=== PATIENT | male | born 1940 | race Caucasian/White ===

== ENCOUNTER 2019-04-01 19:13 | Inpatient (IN) | payer OTHER ==
[~2019-04-01] VITALS: Ht 177.8 cm; Wt 79.4 kg
--- NOTE | ~2019-04-01 | EKG ---
[facility] [place] [address] ELECTROCARDIOGRAM REPORT Name: MURALI ALMAGUER Room #: [facility] M.R.#: [id number] Admission: Attend Phys: Discharge: Date of : 40 Report #: [id number] THIS REPORT FOR: //name// [facility] ED Test Date: 2019-04-01 Test Time: 19:45:22 Pat Name: MURALI ALMAGUER Department: Room: Gender: Copy Lathe Tender: FREYA : 1940 Requested By: Kenneth Holcomb Order Number: [id number] MD: Measurements Intervals [place] Rate: 160 P: FL: QRS: -41 QRSD: 88 T: 106 QT: 286 QTc: 467 Interpretive Statements Atrial fibrillation with rapid V-rate Left anterior fascicular block Abnormal R-wave progression, early transition LVH with secondary repolarization abnormality No previous ECG available for comparison [email or web address] By: 44 44 Damon Jose MD /ANALI
[2019-04-01 19:23] VITALS: BP 136/76
[2019-04-01] MEDS ORDERED: ACYCLOVIR 400400 MG PO (19:50)
[2019-04-01 20:35] LABS: HEMATOCRIT 44.6 % (42.0-52.0); HEMOGLOBIN 14.9 gm/dL (14.0-18.0); MCHC 33.4 g/dL (28.0-37.0); MCV 95.9 fL (80.0-100.0); PLATELET COUNT 237 thou/uL (150-400); RBC 4.65 mil/uL (4.50-6.00); RDW 13.7 % (10.5-14.5); WBC 8.7 thou/uL (4.0-11.0)
[2019-04-01 20:45] LABS: CALCIUM 9.4 mg/dL (8.5-10.1); CREATININE 1.1 mg/dL (0.7-1.3); POTASSIUM 4.2 mmol/L (3.5-5.1)
[2019-04-01 20:48] LABS: APTT 28.7 Seconds (24.5-32.8); PROTIME 9.9 Seconds (9.3-11.4)
[2019-04-01 20:55] LABS: ABSOLUTE NEUTROPHILS 5.7 thou/uL (1.4-8.2); ALBUMIN 3.6 g/dL (3.4-5.0); ATYPICAL LYMPHS 4 %; MAGNESIUM 2.2 mg/dL (1.8-2.4); PLATELET ESTIMATE NORMAL; TOTAL BILIRUBIN 0.3 mg/dL (<0.1-1.0); TOTAL PROTEIN 7.5 g/dL (6.4-8.2)
[2019-04-01 20:59] LABS: TROPONIN-I 14.66 ng/mL (<0.06)
[2019-04-01 22:02] VITALS: BP 103/76
[2019-04-01 22:45] VITALS: BP 139/84
[2019-04-02] VITALS (12 sets, daily range): BP systolic 114–137; BP diastolic 75–92
[2019-04-02 00:49] LABS: CHOLESTEROL 155 mg/dL (<200); HDL CHOLESTEROL 72 mg/dL (>40); LDL CHOLESTEROL 69 mg/dL (<100); TC:HDL 2.2 Ratio (Not establshd); TRIGLYCERIDE 70 mg/dL (<150); VLDL 14 mg/dL (<40)
[2019-04-02 00:52] LABS: SERUM ASSESSMENT Clear
[2019-04-02 03:01] LABS: ALBUMIN 3.1 g/dL (3.4-5.0); CALCIUM 8.4 mg/dL (8.5-10.1); POTASSIUM 4.1 mmol/L (3.5-5.1); TOTAL BILIRUBIN 0.5 mg/dL (<0.1-1.0); TOTAL PROTEIN 6.6 g/dL (6.4-8.2)
[2019-04-02 03:04] LABS: TROPONIN-I 11.68 ng/mL (<0.06)
--- NOTE | 2019-04-02 04:25 | NUR ---
PT NEW ADMIT. AO X4. VSS. DENIES CHEST PAIN. ADMISSION ASSESSMENT COMPLETE. PT ORIENTED TO ROOM AND CALL LIGHT SYSTEM. ON HEPARIN AND CARDIZEM DRIP. DENIES ANY ACTIVE SOB OR PAIN. AD NAVJOT WITH AMBULATION. NPO SINCE MIDNIGHT. A RUN OF 22 BEATS OF VTACH, BUT ASYMPTOMATIC. SPOUSE AT BEDSIDE. ELEVATED TROPONIN. WILL CONTINUE TO FOLLOW POC.
--- NOTE | 2019-04-02 12:58 | 2DMMODE ---
[facility] [address] [place] [address] 2 D/M-MODE ECHOCARDIOGRAM Name: MURALI VARELA Room #: 217-P ADM IN M.R.#: [id number] Admission: 04/01/19 Attend Phys: George Gordillo Discharge: Date of : 40 Report #: [id number] THIS REPORT FOR: //name// APPROVED REPORT Study performed: 04/02/2019 10:25:13 EXAM: Comprehensive 2D, Doppler, and color-flow Echocardiogram Patient Location: Bedside Room #: Formerly named [facility] Status: routine BSA: 2.03 HR: 68 bpm BP: 124/87 mmHg Rhythm: RBBB, Afib Other Information Study Quality: Adequate Indications Dyspnea CAD NSTEMI 2D Dimensions IVSd: 11.63 (7-11mm) LVOT Diam: 21.00 (18-24mm) LVDd: 54.56 mm PWd: 12.89 (7-11mm) Ascending Ao: 37.56 (22-36mm) LVDs: 42.48 (25-40mm) Aortic Root: 36.27 mm LV Single Plane 4CH: 41.99 % LV Single Plane 2CH: 40.00 % Biplane EF: 42.0 % Volumes Left Atrial Volume (Systole) Single Plane 4CH: 55.85 mL Single Plane 2CH: 58.61 mL LA ESV Index: 32.00 mL/m2 Aortic Valve AoV Peak Luis.: 1.03 m/s AO Peak Gr.: 4.75 mmHg LVOT Max P.83 mmHg LVOT Max V: 0.68 m/s SHARYN Vmax: 2.18 cm2 [facility] [address] [place] [address] 2 D/M-MODE ECHOCARDIOGRAM Name: MURALI VARELA Room #: 217-P [facility] IN [facility]#: [id number] Admission: 04/01/19 Attend Phys: George Gordillo Discharge: Date of : 40 Report #: [id number] Pulmonary Valve PV Peak Luis.: 0.63 m/s PV Peak Gr.: 1.58 mmHg Tricuspid Valve TR Peak Luis.: 3.39 m/s RAP Estimate: 10.00 mmHg TR Peak Gr.: 45.92 mmHg PA Pressure: 56.00 mmHg Left Ventricle Left ventricle is dilated. Anteroseptal hypokinesis. Mild concentric left ventricular hypertrophy. Left ventricular systolic function is moderately decreased. LVEF is 40%. This study is not technically sufficient to allow evaluation of the LV diastolic function due to atrial fibrillation. Right Ventricle The right ventricle is normal size. The right ventricular systolic function is normal. Atria The left atrium size is normal. Right atrium is mildly dilated. Aortic Valve The aortic valve is normal in structure. No aortic regurgitation is present. There is no aortic valvular stenosis. Mitral Valve The mitral valve is normal in structure. Mild to moderate mitral regurgitation. No evidence of mitral valve stenosis. Tricuspid Valve The tricuspid valve is normal in structure. Mild to moderate tricuspid regurgitation. Pulmonary artery pressure is 56 mmHg. Moderate pulmonary hypertension. Pulmonic Valve The pulmonary valve is normal in structure. Trace pulmonic regurgitation. Great Vessels The aortic root is normal in size. The ascending aorta is normal in size. IVC is normal in size and collapses >50% with inspiration. Pericardium [facility] [place] [address] 2 D/M-MODE ECHOCARDIOGRAM Name: MURALI VARELA Room #: 217-P [facility] IN .R.#: [id number] Admission: 04/01/19 Attend Phys: George Gordillo Discharge: Date of : 40 Report #: [id number] There is no pericardial effusion. <Conclusion> Left ventricle is dilated. Mild concentric left ventricular hypertrophy. Left ventricular systolic function is moderately decreased. LVEF is 40%. The right ventricle is normal size. The left atrium size is normal. The aortic valve is normal in structure. Mild to moderate mitral regurgitation. Mild to moderate tricuspid regurgitation. Pulmonary artery pressure is 56 mmHg. Moderate pulmonary hypertension. <ELECTRONICALLY SIGNED> By: Joaquin Chapa MD 04/02/19 1257 1257 1257 Joaquin Chapa MD /INF
--- NOTE | 2019-04-02 13:52 | CATHLAB ---
[facility] [address] [place] [address] INVASIVE PROCEDURE REPORT Name: VARELAMURALI Room #: 217-P [facility] IN ..#: [id number] Admission: 04/01/19 Attend Phys: George Gordillo Discharge: Date of : 40 Report #: [id number] THIS REPORT FOR: //name// APPROVED REPORT Study performed: 04/02/2019 08:16:34 Patient Details Patient Status: In-Patient Room #: The patient is a 78 year-old male Event Personnel Joaquin Chapa Calcine Furnace Loader, Walker Fenton RN, Nicolas Wyatt Monitor, Michelle Brasher RTR Scrub Procedures Performed Left Heart Cath w/or w/o Coronaries [id number] [facility] w/wo Plasty Single LAD 585314 Indication Non-STEMI , Dizziness and vertigo, Atrial fibrillation, Dyspnea Risk Factors Hypercholesterolemia Procedure Narrative The Right Groin^ was infiltrated with subcutaneous anesthesia. A PINNACLE 4FR Sheath #[id number] sheath was inserted into the RFA^. Coronary angiography was performed using coronary diagnostic catheters. The right coronary system was accessed and visualized with a JR4 catheter. The left coronary system was accessed and visualized with a 4FR JL 5.0 #[id number] catheter. The left ventricle was accessed and visualized with a PIGTAIL catheter. Left ventricular/Aortic Valve gradient assessed via catheter pullback. Left ventriculogram was performed in 30 degree projection. Closure device was deployed with a 6 Fr MYNXGRIP 6/7F #[id number]. The patient tolerated the procedure well and there were no complications associated with the procedure. There was no hematoma. Intraoperative Conscious Sedation Sedation start time: 8.51 Case end Time: 9.51 Fentanyl 50 mcg Versed 2 mg Fluoro Time: 11.16 minutes [facility] [address] [place] [address] INVASIVE PROCEDURE REPORT Name: MURALI VARELA Room #: 217-P [facility] IN ..#: [id number] Admission: 04/01/19 Attend Phys: George Gordillo Discharge: Date of : 40 Report #: [id number] Dose: DAP 58258.00 cGycm2 2172 mGy Contrast Type and Amount: Omnipaque 310 ml Coronary Angiography The patient's coronary anatomy is right dominant. Diagnostic Cath Left Main The left main artery is a large-caliber vessel, patent with no flow-limiting lesions. LAD This is a moderate to large caliber vessel, traversing the anterior wall and wrapping around the apex. There is a severe stenosis in the ostial/proximal segment, at least 80%. There is mild plaquing in the mid segment. Diagonal 1 This is a moderate size caliber vessel, patent with no flow-limiting lesions. Circumflex This is a moderate to large caliber vessel, patent with no flow-limiting lesions. OM1 This is a moderate size caliber vessel, patent with no flow-limiting lesions. OM2 This is a moderate size caliber vessel, patent with no flow-limiting lesions. OM3 This is a moderate size caliber vessel, patent with no flow-limiting lesions. Right Coronary This is a large caliber vessel, dominant with no flow-limiting lesions. R PDA This is a moderate size caliber vessel, patent with no flow-limiting lesions. RPLV This is a moderate size caliber vessel, patent with no flow-limiting lesions. Left Ventriculography The left ventricle is mildly dilated in size with decreased contractility. The left ventricular ejection fraction is estimated to be 40%. There is hypokinesis of the anterolateral and apical segments. Hemodynamics The aortic pressure is 123/73 mmHg with a mean of 95 mmHg. The left ventricular pressure is 136/10 mmHg with a mean of mmHg. The left ventricular end diastolic pressure is 37 mmHg. There was no gradient across the aortic valve upon pullback. Pullback from the left ventricle to the aorta revealed no gradient across the aortic valve. PCI Technique Lesion Percutaneous coronary intervention was performed on the proximal left [facility] [address] [place] [address] INVASIVE PROCEDURE REPORT Name: MURALI VARELA Room #: 217-P [facility] IN M.R.#: [id number] Admission: 04/01/19 Attend Phys: George Gordillo Discharge: Date of : 40 Report #: [id number] anterior descending artery segment. The lesion stenosis prior to intervention was 80% with VA 3 flow. A VISTA 6FR JL5 #[id number] Guide Catheter was used to engage the ostium. A Luge Wire .014 x 182CM #[id number] Interventional Guidewire was used to cross the lesion. BALLOON DILATION A Balloon catheter Euphora RX 2.5 x 10 #[id number] was inserted and inflated up to 12.00atm for 17seconds. Additional Inflation: 12.00atm for 11seconds. Additional Inflation: 12.00atm for 19seconds. STENT DEPLOYMENT A drug-eluting stent RESOLUTE GALEN RX 3.5 X 12 #[id number] was inserted and inflated up to 16.00atm for 20seconds. POST STENT DEPLOYMENT BALLOON DILATION A Balloon catheter TREK NC RX 4.0 X 8 #[id number] was inserted and inflated up to 14.00atm for 13seconds. Additional Inflation: 16.00atm for 13seconds. Final angiography reveals 0 % stenosis with VA 3 flow. Conclusion 1. Successful insertion of a drug-eluting stent into the ostial/proximal LAD. 2. Both the RCA and left circumflex arteries are patent, with no flow-limiting lesions. 3. Moderate segmental LV dysfunction. 4. Recommend dual antiplatelet therapy and aggressive risk factor management. <ELECTRONICALLY SIGNED> By: Joaquin Chapa MD 04/02/19 1351 135 135 Joaquin Chapa MD /INF
--- NOTE | 2019-04-02 14:39 | NUR ---
Patient admits with chest pain spoke with outside the room. reports they were here visiting family when patient was having chest pain. Their plan was today to fly to [place] for a week then return to [place] for family event. reports they will be staying in [place]. They have no phys in [place] and no network control operators supervisor that patient has been connected to prev. Discussed likely f/u apt in [place]. Encouraged to call insurance for cardiology in network with Jose Martin to follow in [place]. FISH AND WILDLIFE TECHNICIAN patient independent with adls and self care. Patient cont to drive, no DME prev. Casemgt following for dc planning.
--- NOTE | 2019-04-02 18:18 | NUR ---
RECEIVED PT'S CARE AROUND 0730; PT. AOX4; NO C/O PAIN; SPORTS MARKETING SPECIALIST ROUNDING ON FLOOR; NPO; PT. SCHEDULED TO CARDIAC CATH; GONE AROUND 0810; HEPARIN & CARDIZEM D/C; PER ORDER; RETURN TO FLOOR AROUND 1030; R. GROIN SIDE C/D/I; NO HEMATOMA NOTICED; NO HEMATOMA THROUGH THE DAY; EDUCATED ABOUT BED REST ST. UNDERSTANDING; OFF BED REST AT 1300; ABLE TO AMBULATE FROM BED TO RESTHROOM; EDUCATED ABOUT HOLDING PRESSURE IF COUGHIN OR LAUGHING TO HARD; ST. UNDERSTANDING; SR ON THE MONITOR; ASSESSMENT CHARGED; FOLLOWING POC; WILL PASS ON REPORT;
[2019-04-02 21:13] LABS: AMP/METHAMP Negative (Negative); BARBITURATES Negative (Negative); BENZODIAZEPINES Negative (Negative); COCAINE Negative (Negative); METHADONE Negative (Negative); OPIATES Negative (Negative); PCP Negative (Negative)
[2019-04-02 23:09] LABS: GLYCOHEMOGLOBIN (HGB A1C) 5.7 % (4.8-5.6)
--- NOTE | 2019-04-03 04:27 | NUR ---
ASSUMED CARE AT 1900. PT S/P CARDIAC CATH. AOX4. VSS. PT SPOUSE AT BEDSIDE. RIGHT GROIN SITE C/D/I. NO HEMATOMA. SINUS ARRYTHMIA ON THE MONITOR WITH PACs, AND OCCASIONAL NON SUSTAINING VTACH. PT DENIES ANY CHEST PAIN OR SOB. WILL CONTINUE TO FOLLOW POC.
[2019-04-03 04:46] VITALS: BP 140/93
[2019-04-03 05:29] LABS: HEMATOCRIT 43.5 % (42.0-52.0); HEMOGLOBIN 14.4 gm/dL (14.0-18.0); MCHC 33.2 g/dL (28.0-37.0); MCV 96.6 fL (80.0-100.0); RBC 4.51 mil/uL (4.50-6.00); RDW 13.5 % (10.5-14.5); WBC 11.2 thou/uL (4.0-11.0)
[2019-04-03 05:49] LABS: ALBUMIN 3.3 g/dL (3.4-5.0); CALCIUM 8.9 mg/dL (8.5-10.1); CREATININE 1.1 mg/dL (0.7-1.3); POTASSIUM 4.2 mmol/L (3.5-5.1); TOTAL BILIRUBIN 1.1 mg/dL (<0.1-1.0); TOTAL PROTEIN 7.2 g/dL (6.4-8.2)
[2019-04-03 08:00] VITALS: BP 122/76
[2019-04-03 10:54] VITALS: BP 122/76
[2019-04-03 16:00] VITALS: BP 121/77
--- NOTE | 2019-04-03 17:13 | EKG ---
[address] [place] [place] [address] ELECTROCARDIOGRAM REPORT Name: MURALI VARELA Room #: 217-P ADM IN M.R.#: [id number] Admission: 04/01/19 Attend Phys: George Sanches Discharge: Date of : 40 Report #: [id number] THIS REPORT FOR: //name// [facility] ED Test Date: 2019-04-01 Test Time: 19:45:22 Pat Name: MURALI VARELA Department: Room: [facility] Gender: M Plug Paster: FREYA : 1940 Requested By: Kenneth Holcomb Order Number: [id number] MD: Gregg Dover Measurements Intervals [place] Rate: 160 P: [place]: QRS: -41 QRSD: 88 T: 106 QT: 286 QTc: 467 Interpretive Statements Atrial fibrillation with rapid V-rate Left anterior fascicular block Abnormal R-wave progression, early transition LVH with secondary repolarization abnormality No previous ECG available for comparison Electronically Signed On 04-03-2019 17:12:35 WEB MARKETING ANALYST by Gregg Dover [email or web address] <ELECTRONICALLY SIGNED> By: Gregg Dover MD 04/03/19 1712 44 44 Gregg Dover MD /EPI
--- NOTE | 2019-04-03 17:13 | EKG ---
[place] [address] [facility] [place] [address] ELECTROCARDIOGRAM REPORT Name: MURALI VARELA Room #: 217-P ADM IN M.R.#: [id number] Admission: 04/01/19 Attend Phys: George Sanches Discharge: Date of : 40 Report #: [id number] THIS REPORT FOR: //name// [facility] ED Test Date: 2019-04-01 Test Time: 21:07:14 Pat Name: MURALI VARELA Department: Room: [facility] Gender: M Philosophy Faculty Member: MOIZ : 1940 Requested By: Kenneth Holcomb Order Number: [id number] MD: Gregg Dover Measurements Intervals [place] Rate: 142 P: [place]: QRS: -40 QRSD: 89 T: 111 QT: 323 QTc: 497 Interpretive Statements Atrial fibrillation with rapid V-rate Left anterior fascicular block Abnormal R-wave progression, early transition Repolarization abnormality, prob rate related Baseline wander in lead(s) V6 No previous ECG available for comparison Electronically Signed On 04-03-2019 17:13:13 SALESPERSON [place] AND GLASSWARE by Gregg Dover [email or web address] <ELECTRONICALLY SIGNED> By: Gregg Dover MD 04/03/19 1713 06 06 Gregg Dover MD /EPI
--- NOTE | 2019-04-03 17:15 | EKG ---
[place] [address] [address] [facility] [place] [address] ELECTROCARDIOGRAM REPORT Name: MURALI VARELA Room #: 217-P ADM IN M.R.#: [id number] Admission: 04/01/19 Attend Phys: George Sanches Discharge: Date of : 40 Report #: [id number] THIS REPORT FOR: //name// [facility] Test Date: 2019-04-02 Test Time: 07:46:00 Pat Name: MURALI VARELA Department: Room: 217 P Gender: M Gearcase Assembler: Messi TRIANA : 1940 Requested By: Yvette Chawla Order Number: [id number] MD: Gregg Dover Measurements Intervals [place] Rate: 69 P: 79 DE: 200 QRS: -33 QRSD: 93 T: 115 QT: 425 QTc: 456 Interpretive Statements Sinus rhythm Left axis deviation Abnormal R-wave progression, early transition Nonspecific repol abnormality, diffuse leads No previous ECG available for comparison Electronically Signed On 04-03-2019 17:14:43 LANDFILL GAS COLLECTION SYSTEM OPERATOR by Gregg Dover [email or web address] <ELECTRONICALLY SIGNED> By: Gregg Dover MD 04/03/19 1714 5 5 Gregg Dover MD /ANALI
--- NOTE | 2019-04-03 17:18 | EKG ---
[place] [address] [facility] [place] [address] ELECTROCARDIOGRAM REPORT Name: VARELAMURALI Room #: 217- ADM IN M.R.#: [id number] Admission: 04/01/19 Attend Phys: George Sanches Discharge: Date of : 40 Report #: [id number] THIS REPORT FOR: //name// [facility] Test Date: 2019-04-02 Test Time: 11:12:07 Pat Name: MURALI VARELA Department: Room: 217 P Gender: M Urban Planner: Hector GONZALES : 1940 Requested By: Joaquin Chapa Order Number: [id number] MD: Gregg Dover Measurements Intervals [place] Rate: 65 P: -34 ID: 193 QRS: -41 QRSD: 98 T: 124 QT: 417 QTc: 434 Interpretive Statements Sinus rhythm Left anterior fascicular block Abnormal R-wave progression, early transition Repol abnrm suggests ischemia, diffuse leads No previous ECG available for comparison Electronically Signed On 04-03-2019 17:18:11 MID LEVEL PROJECT MANAGER by Gregg Dover [email or web address] <ELECTRONICALLY SIGNED> By: Gregg Dover MD 04/03/19 1718 111 111 Gregg Dover MD /EPI
--- NOTE | 2019-04-03 17:24 | EKG ---
[place] [address] [place] [address] ELECTROCARDIOGRAM REPORT Name: MURALI VARELA Room #: 217- ADM IN M.R.#: [id number] Admission: 04/01/19 Attend Phys: George Sanches Discharge: Date of : 40 Report #: [id number] THIS REPORT FOR: //name// [facility] Test Date: 2019-04-03 Test Time: 07:25:31 Pat Name: MURALI VARELA Department: Room: 217 P Gender: M Mixer Foam Rubber: RYAN : 1940 Requested By: Joaquin Chapa Order Number: [id number] MD: Gregg Dover Measurements Intervals [place] Rate: 90 P: -57 MD: 187 QRS: -44 QRSD: 89 T: 97 QT: 373 QTc: 457 Interpretive Statements Sinus or ectopic atrial rhythm Supraventricular bigeminy Left anterior fascicular block No previous ECG available for comparison Electronically Signed On 04-03-2019 17:24:16 FREIGHT CALLER by Gregg Dover [email or web address] <ELECTRONICALLY SIGNED> By: Gregg Dover MD 04/03/19 1724 4 4 Gregg Dover MD /ANALI
--- NOTE | 2019-04-03 17:33 | NUR ---
RECEIVED PT'S CARE AROUND [address]; PT. AOX4; DURING ASSESSMENT NO C/O PAIN; NO SOB; AM MEDICATIONS GIVEN; EDUCATED ABOUT NEW MEDICATIONS; R. GROIN C/D/I; EDUCATED ABOUT USING URINAL TO MEASURE OUTPUT; ST. UNDERSTANDING; EDUCATED ABOUT NOT LEAVING THE UNIT WHILE AMBULATING; ST. UNDERSTANDING; SR ON THE MONITOR WITH PACs; ASSESSMENT CHARGED; FOLLOWING POC; WILL PASS ON REPORT;
[2019-04-03 19:45] VITALS: BP 109/80
[2019-04-04 02:09] VITALS: BP 109/80
--- NOTE | 2019-04-04 03:04 | NUR ---
ASSESSMENT DOCUMENTED.PT BEEN RESTING IN NO ACUTE DISTRESS.A/OX4.SPOUSE AT BEDSIDE.NO C/O CHEST PAIN.S/P CARDIAC DEISY WITH STENT PLACEMENT.DENIES ANY NEEDS AT THIS TIME.POC IS TO DISCHARGE TO HOME TODAY.
[2019-04-04 04:20] VITALS: BP 117/85
[2019-04-04 04:51] LABS: HEMATOCRIT 44.1 % (42.0-52.0); HEMOGLOBIN 14.6 gm/dL (14.0-18.0); MCH 32.3 pg (26.0-34.0); MCHC 33.1 g/dL (28.0-37.0); MCV 97.5 fL (80.0-100.0); RBC 4.52 mil/uL (4.50-6.00); RDW 13.5 % (10.5-14.5); WBC 9.1 thou/uL (4.0-11.0)
[2019-04-04 08:00] VITALS: BP 129/77
[2019-04-04 11:11] LABS: PHOSPHORUS 2.9 mg/dL (2.5-4.9)
[2019-04-04 11:38] LABS: FOLIC ACID 19.8 ng/mL (8.6-58.9)
--- NOTE | 2019-04-04 13:22 | NUR ---
805 THIS MORNING PT'S HR WENT TO THE 130S, CARDIOLOGY AWARE AND SAW PT, HR HAS FLUCTUATED BETWEEN 89-157 SINCE THEN MOSTLY REMANING IN THE 120S-130S, PT ON CARDIZEM AND AMIODARONE GTTS, DR HARRELL SPOKE WITH PT ABOUT ETOH ADDICTION AND HOW IT CORRELATES WITH HIGH HR DURING WITHDRAWAL. PT AND VERBALIZED UNDERSTANDING OF THE PROBLEM AND VERBALIZED THAT HE WILL STOP DRINKING ETOH WELL GET RID OF ALL THE ALCOHOL IN THEIR HOME. CIWA PROTOCOL INITIATED AT 10. WILL CONTINUE TO MONITOR.
--- NOTE | 2019-04-04 18:33 | NUR ---
AT 1415 PT HAD 4 SEC PAUSE, HR DROPPED FROM 130S TO 50S, BOTH CARDIZEM AND AMIODARONE GTTS STOPPED, PT REPORTED THAT HE WAS TELLING A STORY AND DIDN'T MAKE SENSE FOR A FEW SECONDS THEN SEEMED FINE, HEART CONVERTED TO SR/SB ON THE TELE MONITOR, DR ARZATE CALLED, CAME TO SEE. HE ORDERED PO CARDIZEM AND WROTE THE ORDER FOR AMIO AND CARDIZEM GTTS TO DISCONTINUE. NS STILL RUNNING AT 100CC/HR. PT RESTING IN BED. WILL MONITOR
[2019-04-04 20:00] VITALS: BP 100/63
[2019-04-04 23:30] VITALS: BP 113/74
[2019-04-05 04:10] VITALS: BP 118/86
--- NOTE | 2019-04-05 06:14 | NUR ---
ASSUMED PT CARE AROUND 191. PT RESTING IN BED WITH AT BEDSIDE. PT WANTED TO WASH UP AND GET FRESH LINENS. PT ABLE TO FRESHEN UP PRIOR TO BED. PT HAD NO C/O PAIN, CP, SOA, OR N/V/D. PT RESTED THRU NIGHT WITH MINIMAL INTERRUPTIONS. PT HR REMAINED SR THRU SHIFT. WILL CONTINUE TO MONITOR PT PER PLAN OF CARE.
--- NOTE | 2019-04-05 08:22 | NUR ---
REC REPORT APPROX 0730, PT AND SPOUSE SLEEPING, A&0X4, WOKE UP, SBA TO RESTROOM, MI'KMAQ, IVF RUNNING, BOTH IV'S IN WORKING ORDER, STATES HE HAS A DIFFICULT TIME BEING STUCK FOR IV. SEE SEPARATE INTERVENTIONS FOR ASSESSMENTS. CARDIAC MONITORED. ENCOURAGED BOTH TO USE CALL LIGHT FOR ANY NEES
[2019-04-05] MEDS ORDERED: EFFIENT10 MG PO (08:35)
[2019-04-05] MEDS ORDERED: ELIQUIS5 MG PO (08:35)
[2019-04-05] MEDS ORDERED: LIPITOR40 MG PO (08:36)
[2019-04-05] MEDS ORDERED: PACERONE 200 M200 M1 PO (08:36)
[2019-04-05] MEDS ORDERED: METOPROLOL SUCC50 MG PO (08:36)
[2019-04-05] MEDS ORDERED: CHLORDIAZEPOXID10 MG PO (08:37)
[2019-04-05] MEDS ORDERED: VITAMIN B-1100 M2 PO (08:37)
[2019-04-05] MEDS ORDERED: PRENATAL PO (08:38)
[2019-04-05 09:15] VITALS: BP 117/67
[2019-04-05 11:07] VITALS: BP 117/67
== END 2019-04-05 12:28 | disposition home or self-care (01) | DRG 246 ==
LOC: ER 19:13 → 2N 21:15 → EROBS 21:15 → 2N 22:14
PROVIDERS: Emergency Medicine; Internal Medicine Cardiovascular Disease; Nurse Practitioner Family; ADMIT Hospitalist
PROC: 027034Z Dilation of Coronary Artery, One Artery with Drug-eluting Intraluminal Device, Percutaneous Approach (ICD-10-PCS; principal; 2019-04-01)
PROC: B2111ZZ Fluoroscopy of Multiple Coronary Arteries using Low Osmolar Contrast (ICD-10-PCS; principal; 2019-04-01)
PROC: B2151ZZ Fluoroscopy of Left Heart using Low Osmolar Contrast (ICD-10-PCS; principal; 2019-04-01)
PROC: 4A023N7 Measurement of Cardiac Sampling and Pressure, Left Heart, Percutaneous Approach (ICD-10-PCS; principal; 2019-04-01)
DX: I21.4 Non-ST elevation (NSTEMI) myocardial infarction (principal); I50.23 Acute on chronic systolic (congestive) heart failure; I47.1 Supraventricular tachycardia; F10.239 Alcohol dependence with withdrawal, unspecified; I25.5 Ischemic cardiomyopathy; K21.9 Gastro-esophageal reflux disease without esophagitis; F17.210 Nicotine dependence, cigarettes, uncomplicated; R79.0 Abnormal level of blood mineral; E78.5 Hyperlipidemia, unspecified; I48.0 Paroxysmal atrial fibrillation; Z79.01 Long term (current) use of anticoagulants; Z91.013 Allergy to seafood; Z91.018 Allergy to other foods; Z82.49 Family history of ischemic heart disease and other diseases of the circulatory system; Z83.3 Family history of diabetes mellitus; Z79.899 Other long term (current) drug therapy
CPT/HCPCS: 10081

== ENCOUNTER → 2019-04-09 | Outpatient (CLI) | payer OTHER ==
[~2019-04-09] MED LIST: ACYCLOVIR 400400 MG PO; CHLORDIAZEPOXID10 MG PO; EFFIENT10 MG PO; ELIQUIS5 MG PO; LIPITOR40 MG PO; METOPROLOL SUCC50 MG PO; PACERONE 200 M200 M1 PO; PRENATAL PO; VITAMIN B-1100 M2 PO
== END ==
LOC: SJCVC 15:38
DX: R00.1 Bradycardia, unspecified (principal); R94.31 Abnormal electrocardiogram [ECG] [EKG]; I25.10 Atherosclerotic heart disease of native coronary artery without angina pectoris; I48.91 Unspecified atrial fibrillation; Z95.5 Presence of coronary angioplasty implant and graft; Z79.899 Other long term (current) drug therapy